=== PATIENT | female | born 1960 | race Caucasian/White ===

== ENCOUNTER 2019-04-14 12:07 | Emergency (ER) | payer OTHER ==
[~2019-04-14] VITALS: Ht 157.5 cm; Wt 67.1 kg
[2019-04-14 12:07] VITALS: BP_SYST 112
--- NOTE | 2019-04-14 12:25 | NUR ---
ER Dr.dR. Sylvester at bedside examining patient.
--- NOTE | 2019-04-14 12:33 | NUR ---
PT GETTING ABG'S DRAWN AT THE BEDSIDE. pT IS ON ra
--- NOTE | 2019-04-14 12:35 | NUR ---
pt arrived via BLS from [place] [facility] for low O2 sat, 88% on RA. Pt was placed on 4l NC. Current O2 sat is 94%. night monitor placed. RT called for a breathing tx.
--- NOTE | 2019-04-14 12:38 | NUR ---
PT'S O2 SAT DROPPED TO 88% ON RA
--- NOTE | 2019-04-14 12:40 | NUR ---
pt getting a breathing tx at the bedside
--- NOTE | 2019-04-14 12:45 | NUR ---
# 20 gauge angiocath placed to RAC. Use of asceptic technique. Opsite placed over site. Blood return noted. Blood for lab drawn from site. Flushed with 10 cc of normal saline. No evidence of infiltration noted. Patient tolerated well.
--- NOTE | 2019-04-14 13:00 | NUR ---
EKG done at the bedside and given to
--- NOTE | 2019-04-14 13:14 | NUR ---
Pt resting in bed VSS, no distress at this time, O2 WNL
[2019-04-14 13:24] LABS: BASOPHILS # (AUTO) 0.1 K/uL (0.0-0.2); BASOPHILS % (AUTO) 1.3 % (0.0-2.0); EOSINOPHILS % (AUTO) 0.4 % (0.0-4.0); HEMOGLOBIN 13.6 g/dL (12.0-16.0); LYMPHOCYTES # (AUTO) 0.5 K/uL (1.0-5.5); LYMPHOCYTES % (AUTO) 11.3 % (20.5-51.5); MEAN CORPUSCULAR HEMOGLOBIN 28 pg (27-31); MEAN CORPUSCULAR HGB CONC 33 % (32-36); MEAN CORPUSCULAR VOLUME 85 fL (79.0-98.0); MONOCYTES # (AUTO) 0.5 K/uL (0.0-1.0); MONOCYTES % (AUTO) 11.1 % (1.7-9.3); NEUTROPHILS # (AUTO) 3.1 K/uL (1.8-7.7); NEUTROPHILS % (AUTO) 75.9 % (40.0-70.0); PLATELET COUNT (AUTO) 193 K/uL (130-430); RED BLOOD CELL COUNT(AUTO) 4.81 MIL/uL (4.2-6.2); RED CELL DISTRIBUTION WIDTH 14.5 % (9.0-15.0); WHITE BLOOD COUNT (AUTO) 4.1 K/uL (4.8-10.8)
[2019-04-14 13:37] LABS: PROTHROMBIN TIME 10.4 SECS (9.5-12.5)
[2019-04-14 13:45] LABS: CALCIUM 8.6 mg/dL (8.4-11.0); CREATININE 0.72 mg/dL (0.55-1.30); POTASSIUM 3.3 mmol/L (3.5-5.1)
[2019-04-14 13:50] LABS: ALBUMIN 3.6 g/dL (3.4-4.8); TOTAL BILIRUBIN 0.5 mg/dL (0.0-1.0)
[2019-04-14] MEDS ORDERED: OSELTAMIVIR PHOSPHATE 75 MG CAPSULE PO ONE (14:15)
--- NOTE | 2019-04-14 14:43 | NUR ---
pt getting a second breathing tx.
[2019-04-14] MEDS ORDERED: methylPREDNISolone SOD SUCC/PF 62.5 MG/ML VIAL IVP ONE (14:45)
[2019-04-14] MEDS ORDERED: IPRATROPIUM/ALBUTEROL SULFATE 3 ML AMPUL.NEB (DUONEB) INH ONE (14:45)
[2019-04-14] MEDS ORDERED: cefTRIAXone 1 GM IVPB PREMIX 50 ML IV ONE (15:15)
--- NOTE | 2019-04-14 16:00 | NUR ---
Pt resting in room, VSS, on 2L by nasal cannula, no distress at this time
--- NOTE | 2019-04-14 17:30 | NUR ---
Patient to be transferred to [facility]. Is being transferred due to higher level of care. Receiving facility has accepting physician and available space. ER physician has signed transfer form. Patient or responsible constitution party has agreed to transfer and signed form. Patient belongings inventoried and will be sent with patient. Copy of nursing notes, lab reports, EKG, Physicians Orders and X-rays to be sent with patient. Report called to Robbie at receiving facility. Receiving physician is Dr Mckeon. [facility] ambulance service has been called for transfer.
[2019-04-14 18:00] VITALS: BP_SYST 112
== END 2019-04-14 17:30 | disposition short-term general hospital (02) ==
LOC: EEVIPCON 12:07 → SED 12:07
DX: J96.01 Acute respiratory failure with hypoxia (principal); J45.909 Unspecified asthma, uncomplicated; E07.9 Disorder of thyroid, unspecified
CPT/HCPCS: 36415; 36600; 71045; 80053; 82803; 83605; 84484; 85025; 85610; 85730; 86710; 87040; 94640; 96365; 96375; 99285; G9035; J0696; J2930; J7620; 93005